=== PATIENT | male | born 1955 | race Caucasian/White ===

== ENCOUNTER 2016-11-09 16:45 | Emergency (ER) | payer OTHER ==
[~2016-11-09] VITALS: Ht 167.6 cm; Wt 85.0 kg
[2016-11-09 16:51] VITALS: Ht 167.6 cm; Wt 85.0 kg
[2016-11-09] MEDS ORDERED: TETRACAINE 0.5% 4 ML OPH BOTH EYES ONE (18:30)
--- NOTE | 2016-11-09 18:40 | RADRPT ---
PROCEDURE: Ultrasound soft tissue CLINICAL INDICATION: Loss of vision in the left eye. TECHNIQUE: An ultrasound of the bilateral globes was performed utilizing moore scale and Doppler im aging. COMPARISON: None. FINDINGS: Left globe: The anterior chamber is not clearly visualized due to obliquity of the images. The saravanan s appears grossly unremarkable. Multiple irregular echogenic foci are seen within the vitreous body , nonspecific. No abnormal vascularity is identified within the left globe. Right globe: Due to chamber is not clearly visualized due to obliquity of the images. The dens keiry ears grossly unremarkable. A few punctate echogenic foci are identified in the vitrous body, nonspe cific. No abnormal vascular is identified in the right globe. IMPRESSION: 1. Multiple irregular echogenic foci within the left vitreous body. This is nonspecific but might r epresent vitreous hemorrhage. Referral to ophthalmology is recommended. 2. A few punctate echogenic foci in the right vitreous body, nonspecific. RPTAT: HTAR .Justin Abraham MD, MD Date Time Electronically viewed and signed by .Justin Abraham MD, on 11/09/2016 18:40 .R/
--- NOTE | 2016-11-09 18:50 | ERD ---
ER Documentation Chief Complaint Date/Time DATE: 11/09/16 TIME: 18:48 Chief Complaint Complains of left eye vision loss HPI Patient is a 60-year-old male with a past medical history of fibromyalgia, asthma, hyperlipidemia who presents to the emergency department with acute, left eye vision loss. Patient states he woke up this morning with difficulty seeing out of his left eye. Patient states he is able to see light however he is unable to see any objects or people in front of him. Patient denies any pain. Patient saw his prior care physician at the [facility] who referred him to the emergency department. Patient is currently taking duloxetine and baclofen. Patient denies any aspirin for anticoagulation use. Patient denies any eye trauma. Patient denies any fevers, chills, nausea, vomiting, chest pain, shortness breath, head injury or LOC. Patient does wear glasses for reading closely only. ROS All systems reviewed and are negative except as per history of present illness. Allergies Allergies: Coded Allergies: No Known Allergy (Unverified , 11/09/16) PMhx/Soc History of Surgery: No Anesthesia Reaction: No Hx Neurological Disorder: No Hx Respiratory Disorders: Yes (ASTHMA ) Hx Cardiac Disorders: Yes (HIGH CHOLESTEROL ) Hx Psychiatric Problems: No Hx Miscellaneous Medical Probl: Yes (FIBROMYALGIA ) Hx Alcohol Use: No Hx Substance Use: No Hx Tobacco Use: No Smoking Status: Never smoker Physical Exam Vitals Vital Signs Date Time Temp Pulse Resp B/P Pulse Ox O2 Delivery O2 Flow Rate FiO2 11/09/16 16:51 98.5 85 20 123/73 98 Physical Exam GENERAL: Well-developed, well-nourished male. Appears in no acute distress. Speaking in full sentences. HEAD: Normocephalic, atraumatic. Full eye exam: Visual acuity: OS: 0, OD: 20/30, OU: 20/30 Normal alignment. No proptosis. Pupils equal, round, and reactive to light. EOMs intact. Cloudiness of the left pupil noted. No eye tearing or discharge. Left eye IOPs: 15, 17 ENT: Moist mucous membranes. No uvula deviation. No kissing tonsils. NECK: Supple. No meningismus. Normal range of motion of the neck. LUNG: Clear to auscultation bilaterally. No rhonchi, wheezing, rales or coarse breath sounds. HEART: Regular rate and rhythm. No murmurs, rubs or gallops. EXTREMITIES: Equal pulses bilaterally. No peripheral clubbing, cyanosis or edema. No unilateral leg swelling. NEUROLOGIC: Alert and oriented x3, cooperative. Mood and affect appropriate to situation. Cranial nerves II through XII are grossly intact. Normal speech. Motor exam: 5/5 strength in upper and lower extremities. Sensory exam: Sensation intact to light touch on all four extremities. C SKIN: Normal color. Warm and dry. No rashes or lesions. Result Diagram: 11/09/16194511/09/161945 Results 24 hrs Laboratory Tests Test 11/09/16 19:46 White Blood Count 6.510^3/ul Red Blood Count 4.6710^6/ul Hemoglobin 11.6g/dl Hematocrit 36.2% Mean Corpuscular Volume 77.5fl Mean Corpuscular Hemoglobin 24.8pg Mean Corpuscular Hemoglobin Concent 32.0g/dl Red Cell Distribution Width 15.5% Platelet Count 89170^3/UL Mean Platelet Volume 9.7fl Neutrophils % 52.2% Lymphocytes % 31.4% Monocytes % 10.7% Eosinophils % 4.5% Basophils % 0.6% Nucleated Red Blood Cells % 0.0/100WBC Neutrophils # 3.410^3/ul Lymphocytes # 2.010^3/ul Monocytes # 0.710^3/ul Eosinophils # 0.310^3/ul Basophils # 0.010^3/ul Nucleated Red Blood Cells # 0.010^3/ul Prothrombin Time 13.4Sec Prothrombin Time Ratio 1.0 INR International Normalized Ratio 1.02 Activated Partial Thromboplast Time 25.8Sec Sodium Level 138mmol/L Potassium Level 4.1mmol/L Chloride Level 101mmol/L Carbon Dioxide Level 27mmol/L Anion Gap 14 Blood Urea Nitrogen 15mg/dl Creatinine 1.28mg/dl Glucose Level 91mg/dl Calcium Level 9.1mg/dl Total Bilirubin 0.3mg/dl Direct Bilirubin 0.00mg/dl Indirect Bilirubin 0.3mg/dl Aspartate Amino Transf (AST/SGOT) 27IU/L Alanine Aminotransferase (ALT/SGPT) 36IU/L Alkaline Phosphatase 69IU/L Total Protein 7.8g/dl Albumin 4.6g/dl Globulin 3.20g/dl Albumin/Globulin Ratio 1.43 Current Medications Medications (Trade) Dose Ordered Sig/Braulio Route PRN Reason Start Time Stop Time Status Last Admin Dose Admin Tetracaine HCl (Tetracaine 0.5% Steri-Unit Ivy) 1 drop ONCE ONCE BOTH EYES 11/09/16 18:30 11/09/16 18:31 DC 11/09/16 18:07 Procedures/MDM ED COURSE: The patient was stable throughout ED course. I kept the patient and/or family informed of laboratory and diagnostic imaging results throughout the ED course. DIAGNOSTIC IMAGING: Read by radiologist. DIAGNOSTIC IMAGING REPORT Patient: SILVIA GOERGES : 1955 Age: 60 Sex: M MR #: [id number] DOS: 11/09/16 0000 Ordering MD: TONNY EVANS PA-C Location: [facility] Room/Bed: PROCEDURE: Ultrasound soft tissue CLINICAL INDICATION: Loss of vision in the left eye. TECHNIQUE: An ultrasound of the bilateral globes was performed utilizing moore scale and Doppler imaging. COMPARISON: None. FINDINGS: Left globe: The anterior chamber is not clearly visualized due to obliquity of the images. The lens appears grossly unremarkable. Multiple irregular echogenic foci are seen within the vitreous body, nonspecific. No abnormal vascularity is identified within the left globe. Right globe: Due to chamber is not clearly visualized due to obliquity of the images. The dens appears grossly unremarkable. A few punctate echogenic foci are identified in the vitrous body, nonspecific. No abnormal vascular is identified in the right globe. IMPRESSION: 1. Multiple irregular echogenic foci within the left vitreous body. This is nonspecific but might represent vitreous hemorrhage. Referral to ophthalmology is recommended. 2. A few punctate echogenic foci in the right vitreous body, nonspecific. RPTAT: HTAR .Justin Abraham MD, MD Date Time Electronically viewed and signed by .Justin Abraham MD, MD on 11/09/2016 18:40 .R/ CC: TONNY EVANS PA-C MEDICAL DECISION MAKING: This is a 60-year-old male with past medical history of fibromyalgia, asthma and hyperlipidemia who presents to the emergency department for concerns of sudden left eye vision loss upon waking up this morning. Patient is currently taking duloxetine. Patient denied any aspirin or anti-coagulation medication use. Vital signs were reviewed. Patient was afebrile. Visual acuity demonstrated no vision out of the patient's left eye. Blood work was obtained. CBC showed no evidence of systemic infection. Hemoglobin level of 11.6, hematocrit of 36.2 noted. CMP showed no evidence of electrolyte abnormalities, severe acidosis, alkalosis, renal failure, or liver disease. PT/PTT were within normal limits. An eye ultrasound of the patient's left eye showed 1. Multiple irregular echogenic foci within the left vitreous body. This is nonspecific but might represent vitreous hemorrhage. Referral to ophthalmology is recommended. 2. A few punctate echogenic foci in the right vitreous body, nonspecific. Patient's left eye IUP was noted to be 15 and 17. Low suspicion for glaucoma at this time. I discussed this case with my supervising physicians Dr. Young and Dr. Mustafa. Patient will be transferred to a [facility] for higher level care. I spoke to Dr. Montesinos, redye hand , who agreed to consult on the patient when the patient arrives at the [facility] ED. At this time, patient's presentation is most consistent with vitreous hemorrhage secondary to duloxetine use. Patient was stable throughout the ED course and prior to the transfer. Departure Diagnosis: Primary Impression: Vitreous hemorrhage of left eye Condition: Stable TONNY EVANS PA-C Nov 09, 2016 18:49
--- NOTE | 2016-11-09 18:52 | QN ---
Documentation Comment My independent concise history is left eye vision loss. My pertinent physical exam findings are grayish material in the posterior portion of the pupil, haziness, ultrasound of the bilateral eyes, and normal pressures in the bilateral eyes. The plan is called to the MAC system for potential transfer for vitreous hemorrhage. LYNSEY RAUSCH MD Nov 09, 2016 18:52
[2016-11-09 19:57] LABS: BASOPHILS % 0.6 % (0.0-2.0); EOSINOPHILS # 0.3 10^3/ul (0.0-0.5); EOSINOPHILS % 4.5 % (0.0-7.0); HEMATOCRIT 36.2 % (42.0-52.0); HEMOGLOBIN 11.6 g/dl (14.0-18.0); LYMPHOCYTES % 31.4 % (15.0-51.0); MEAN CORPUSCULAR HEMOGLOBIN 24.8 pg (29.0-33.0); MEAN CORPUSCULAR VOLUME 77.5 fl (82.0-101.0); MEAN PLATELET VOLUME 9.7 fl (7.4-10.4); MONOCYTE # 0.7 10^3/ul (0.3-0.9); MONOCYTES % 10.7 % (0.0-11.0); NEUTROPHIL # 3.4 10^3/ul (1.6-7.5); NEUTROPHILS % 52.2 % (39.0-77.0); PLATELET COUNT 222 10^3/UL (140-415); RED BLOOD COUNT 4.67 10^6/ul (4.70-6.10); RED CELL DISTRIBUTION WIDTH 15.5 % (11.5-14.5); WHITE BLOOD COUNT 6.5 10^3/ul (4.8-10.8)
[2016-11-09 20:18] LABS: INR 1.02; PROTIME 13.4 Sec (12.2-14.2)
[2016-11-09 20:23] LABS: PARTIAL THROMBOPLASTIN TIME 25.8 Sec (25.0-35.0)
[2016-11-09 20:25] LABS: POTASSIUM 4.1 mmol/L (3.5-5.1)
[2016-11-09 20:26] LABS: ALBUMIN 4.6 g/dl (3.3-4.9); ALBUMIN/GLOBULIN RATIO 1.43; BILIRUBIN,INDIRECT 0.3 mg/dl (0-1.1); BILIRUBIN,TOTAL 0.3 mg/dl (0.2-1.3); CALCIUM 9.1 mg/dl (8.4-10.2); CREATININE 1.28 mg/dl (0.61-1.24); TOTAL PROTEIN 7.8 g/dl (6.1-8.1)
== END 2016-11-09 23:28 | disposition short-term general hospital (02) ==
LOC: FTE 16:45
DX: H43.12 Vitreous hemorrhage, left eye (principal); J45.909 Unspecified asthma, uncomplicated
CPT/HCPCS: 76536; 80053; 85025; 85610; 85730; Z7502; Z7610

== ENCOUNTER 2017-03-06 11:00 | Day surgery (SDC) | payer OTHER ==
[~2017-03-06] VITALS: Ht 170.2 cm; Wt 67.7 kg
[2017-03-06 11:12] VITALS: Ht 170.2 cm; Wt 67.7 kg
[2017-03-06 11:25] VITALS: BP 146/70; PULSE 71; RESP 11
[2017-03-06] MEDS ORDERED: LIDOCAINE 4% SOLUTION 50 ML BTL ONE (11:37)
--- NOTE | 2017-03-06 12:09 | OPPN ---
Date/Time of Note Date/Time of Note DATE: 03/06/17 TIME: 12:06 Proc Note GI Procedure Date 03/06/17 Indication: screening/surveillance, diagnostic Pre-procedure Diagnosis abd pain Post-procedure Diagnosis gastritis colon polyp Procedure Performed: Endoscopy, Colonoscopy Surgeon see signature line Dementia Program Director none Anesthesia Type: moderate sedation Tourniquet Time none EBL none Transfusion required none Biopsy 1: gastric Biopsy 2: colon polyp Grafts/Implants none Tubes/Drains none Complication(s) none Procedure Description see dict LORA ROCHE MD Mar 06, 2017 12:09
[2017-03-06] MEDS ORDERED: MIDAZOLAM 1 MG/ML 2 ML INJ ONE ×2 (12:16)
[2017-03-06] MEDS ORDERED: FENTAnyl 50 MCG/ML VIAL ONE (12:16)
[2017-03-06 12:58] VITALS: BP 155/77; PULSE 72; RESP 20
--- NOTE | 2017-03-06 13:24 | GILP ---
DATE OF PROCEDURE: 03/06/2017 NAME OF PROCEDURE: Esophagogastroduodenoscopy. PREOPERATIVE DIAGNOSIS: Patient presenting with history of chronic abdominal discomfort, heartburn, rule out peptic ulcer disease, gastroesophageal reflux disease. POSTOPERATIVE DIAGNOSES: 1. Diffuse mild gastritis. 2. Esophagus appeared normal. 3. Duodenum showed a minimal duodenitis. DESCRIPTION OF PROCEDURE: After informed written consent was obtained, the patient was asked to lie on the left lateral side, 3 mg Versed and 75 mcg of fentanyl was given as intravenous anesthesia. When the patient became somnolent, the Olympus video upper endoscope was introduced into the orophar ynx, then into the esophagus. Esophagus showed normal mucosal pattern. Scope at this time was adva nced into the stomach. Stomach showed evidence of diffuse patchy erythematous mucosal surface indic ating a patchy gastritis. Scope at this time was advanced into the duodenum. Duodenum showed minim al erythema in the bulb and the postbulbar area. At this time, biopsy was done from the antrum and the lesser curvature and the fundus to rule out H. pylori infection. Scope at this time was withdra wn and the procedure was terminated. PLAN: Recommend omeprazole 40 mg a day for 2 months. Dictated By: LORA DIAZ/DELANEY Conf#: [id number] DID#: [id number]
--- NOTE | 2017-03-07 14:12 | GILP ---
DATE OF PROCEDURE: PREOPERATIVE DIAGNOSIS: Screening colonoscopy, rule out colon polyps. POSTOPERATIVE DIAGNOSIS: A 1.5 cm in diameter polyp noted on a stalk at 25 cm from the anus. Polyp ectomy was performed and tattooing was performed. DESCRIPTION OF PROCEDURE: After informed written consent was obtained, the patient was asked to lie on the left lateral side. Intravenous anesthesia was given which included Versed and fentanyl. Wh en the patient became somnolent, the Olympus video colonoscope was introduced into the rectum and sc ope was advanced all the way to the cecum. Careful evaluation showed at 25 cm from the anus, there was evidence of a 1.5 cm polyp located on a wide stalk. Tattooing was performed initially and then it was followed by hard snare polypectomy and polyp was sent for histopathology. The rest of the co merrick up to the cecum appeared normal. On the way out, further evaluation was carried out. No additi onal abnormalities detected and the procedure was terminated. PLAN: Recommend wait for the pathology report. Dictated By: LORA DIAZ/DELANEY Conf#: [id number] DID#: [id number]
== END 2017-03-06 19:44 | disposition home or self-care (01) ==
LOC: GIL 11:00
PROVIDERS: ATTEND Internal Medicine Gastroenterology
DX: Z12.11 Encounter for screening for malignant neoplasm of colon (principal); K63.5 Polyp of colon; K29.70 Gastritis, unspecified, without bleeding; K29.80 Duodenitis without bleeding
CPT/HCPCS: 43239; 45380; 88305; 88312; J2250; J3010; Z7610

== ENCOUNTER 2017-03-27 08:07 | Day surgery (SDC) | payer OTHER ==
[~2017-03-27] VITALS: Ht 167.6 cm; Wt 65.8 kg
[2017-03-27] VITALS (7 sets, daily range): BP systolic 98–152; BP diastolic 55–90; PULSE 68–98; RESP 16–20; Ht 167.6 cm; Wt 65.8 kg
[~2017-03-27 08:07] MED LIST: BUPIVACAINE 0.75% (MPF) 10 ML INJ ONE; CYCLOPENTOLATE 2% 2 ML OPH OPER SCH; EPINEPHrine 1 MG INJ ONE; LIDOCAINE 1% (MPF) 10 ML INJ ONE; LIDOCAINE 2% (SDV) 5 ML INJ ONE; MOXIFLOXACIN 0.5% 3 ML OPH OPER SCH; NEPAFENAC 0.1% 3 ML OPH OPER SCH; PHENYLephrine 10% 5 ML OPH OPER SCH; SODIUM BICARBONATE (IV ADD) 50 ML ONE; TIMOLOL 0.5% 5 ML OPH ONE
[2017-03-27] MEDS ORDERED: OMEP40CA6 PO (08:30)
[2017-03-27] MEDS ORDERED: SIMV40TA3 PO (08:30)
[2017-03-27] MEDS ORDERED: CETI-240 PO (08:31)
[2017-03-27] MEDS ORDERED: LIDOCAINE 1% (MPF) 10 ML INJ INJ ONE (11:15)
--- NOTE | 2017-03-27 11:15 | HPN ---
Date/Time of Note Date/Time of Note DATE: 03/27/17 TIME: 11:14 AMY HOGAN MD Mar 27, 2017 11:15
[2017-03-27] MEDS ORDERED: FENTAnyl 50 MCG/ML VIAL ONE (11:22)
[2017-03-27] MEDS ORDERED: MIDAZOLAM 1 MG/ML 2 ML INJ ONE (11:22)
[2017-03-27] MEDS ORDERED: PROPOFOL 20 ML ONE ×2 (11:22→11:57)
[2017-03-27] MEDS ORDERED: LIDOCAINE 2% (SDV) 5 ML INJ ONE (11:22)
[2017-03-27] MEDS ORDERED: ONDANSETRON 4 MG INJ IV PRN (11:30)
[2017-03-27] MEDS ORDERED: OXYCODONE/ACETAMINOPHEN (5/325) TAB PO PRN (11:30)
[2017-03-27] MEDS ORDERED: FENTAnyl 50 MCG/ML VIAL IV PRN (11:30)
[2017-03-27] MEDS ORDERED: DIPHENHYDRAMINE 50 MG INJ IV PRN (11:30)
[2017-03-27] MEDS ORDERED: HYDROmorphONE (0.2 MG/ML) 10ML SYG IV PRN (11:30)
[2017-03-27] MEDS ORDERED: PROCHLORPERAZINE 10 MG INJ IV PRN (11:30)
[2017-03-27] MEDS ORDERED: MEPERIDINE 25 MG INJ IV PRN (11:30)
[2017-03-27] MEDS ORDERED: CARBACHOL 0.01% 1.5 ML OPH INJ IO ONE (11:55)
[2017-03-27] MEDS ORDERED: EPHEDrine SULFATE 50 MG/5 ML SYG ONE (11:57)
[2017-03-27] MEDS ORDERED: CARBACHOL 0.01% 1.5 ML OPH INJ ONE (11:57)
[2017-03-27] MEDS ORDERED: TIMOLOL 0.5% 5 ML OPH LEFT EYE ONE (12:05)
--- NOTE | 2017-03-27 12:17 | SIPON ---
Date/Time of Note Date/Time of Note DATE: 03/27/17 TIME: 12:13 Operative Report Preoperative Diagnosis mature cataract left eye Postoperative Diagnosis same Operation/Procedure Performed phacoemulsification of cataract with lerns implant Surgeon michelle signature line warehouse administrative assistant none Anesthesia: MAC Estimated blood loss: none Transfusion Required none Specimen none Grafts/Implants none Complications none AMY HOGAN MD Mar 27, 2017 12:17
--- NOTE | 2017-03-28 13:42 | OPR ---
DATE OF OPERATION: 03/27/2017 SURGEON: Amy Tabor MD JACQUARD LOOM HEDDLES TIER: None. PREOPERATIVE DIAGNOSIS: Senile nuclear sclerotic cataract left eye. POSTOPERATIVE DIAGNOSIS: Senile nuclear sclerotic cataract, left eye. OPERATION: Kelman phacoemulsification with implantation of intraocular lens left eye. DESCRIPTION OF PROCEDURE: Following standard preparation and draping of the patient, a lid speculum was placed for immobilization of the lids. A Superblade incision was made at the corneal limbal ju nction for access into the anterior chamber. Approximately 0.03 mL of nonpreserved 1% Xylocaine was instilled into the anterior chamber, and after approximately 5 to 10 seconds, this was replaced wit h Viscoat. A clear corneal incision was then made using the 3.2 mm keratome, following which an ant erior circular capsulorrhexis was made. The major portion of the lens cortex and nucleus were then dislocated from the capsular bag using hydrodissection. The KPE tip was introduced into the eye and controlling tumbling of the lens with a 2-handed technique, the major portion of the lens cortex an d nucleus was removed, maintaining the lens in the plane of the iris. The remaining cortical materi al was removed via the irrigating aspirating instrument. The capsular bag and the anterior chamber were now reformed using Viscoat. The proper power lens was then placed in the capsular bag. The vi scoelastic was then removed from the eye and the eye reformed with balanced salt solution. One 10-0 Vicryl suture was then used to ensure closure of the corneal incision. The eye was reformed to nor mal pressure using balanced salt solution. The eye and cul-de-sacs were now simply flooded with 5% Betadine solution. One drop of Vigamox and 1 drop of Betagan solution were instilled into the eye. A light pressure dressing was applied, and the patient was returned to the recovery room in satisfa ctory condition. Dictated By: AMY ARREOLA/DELANEY Conf#: [id number] DID#: [id number]
== END 2017-03-27 13:34 | disposition home or self-care (01) ==
LOC: SDS 08:07
PROVIDERS: ATTEND Ophthalmology
DX: H25.12 Age-related nuclear cataract, left eye (principal); E78.5 Hyperlipidemia, unspecified; K21.9 Gastro-esophageal reflux disease without esophagitis; J45.909 Unspecified asthma, uncomplicated
CPT/HCPCS: 66984; J0171; J2250; J3010; Z7610; V2632